=== PATIENT | female | born 2000 ===

== ENCOUNTER 2020-01-19 15:25 | Inpatient (IN) | payer OTHER ==
[~2020-01-19] VITALS: Ht 170.2 cm; Wt 93.2 kg
[2020-01-20] VITALS (34 sets, daily range): BP systolic 107–139; BP diastolic 59–84; PULSE 68–96; TEMP 97.7–99.5
--- NOTE | 2020-01-20 07:10 | NUR ---
Pt arrives on unit ambulatory with spouse for IOL. Changed into a clean gown. EFM and toco applied. Pt states ctx that began at 0400 with bloody show. Denies LOF and reports GFM. VSS. IV started in LF. Labs drawn. LR infusing. Admission assessment completed. Consents signed. Pt updated on POC. No questios or concerns at this time. Bed locked in low position. Call light within reach. 3149-Pt up to bathroom.
[2020-01-20] MEDS ORDERED: PROFERRIN ES12 MG PO (07:24)
[2020-01-20 08:32] LABS: BASO % 0.2 % (0.0-2.0); EOS # 0.1 (0.0-0.7); EOS % 0.9 % (0-4.0); GRAN # 8.7 (1.4-6.5); GRAN % 75.5 % (42.2-75.2); HEMATOCRIT 38.2 % (35.0-45.0); HEMOGLOBIN 12.2 g/dl (12.0-15.0); LYMPH # 1.7 (1.2-3.4); MEAN CELL VOLUME 89 fl (80.0-95.0); MEAN CORPUSCULAR HEMOGLOBIN 28 pg (26.0-32.0); MEAN CORPUSCULAR HGB CONC 32 g/dl (33.0-37.0); MEAN PLATELET VOLUME 11.7 fl (7.4-10.4); MONO # 0.9 (0.1-0.6); MONO % 7.9 % (1.7-9.3); PLATELET COUNT 237 K/mm3 (130-400); RED BLOOD COUNT 4.29 M/mm3 (4.10-5.30); REDCELL DISTRIBUTION WIDTH-CV 14.3 % (11.5-14.5)
--- NOTE | 2020-01-20 09:38 | NUR ---
Pt sitting at EOB for epidural placement. Difficulty tracing FHR due to maternal position. RN at bedside adjusting monitors. FHR audible.
--- NOTE | 2020-01-20 14:05 | NUR ---
SVE per this RN C/+2. Pt prepped for delivery and coached on pushing. Practice push performed. Moves vertex well. 1409-Dr. Araujo notified and requested to unit for delivery. 1413-Dr. Araujo at bedside. Begins pushing with pt. 1422- of viable male attended by Dr. Araujo. Cord clamped x 2 and cut from umibilicus. Infant dried and placed on mother's abdomden. Care of to Chucky Shipley RN. Apgars 8/9/9. 1430- of placenta. Fundus firm at umbilicus. Bleeding WNL. Pitocin bolus infusing per protocol. Periurethral laceration repair per provider. Pericare performed. Ice pack applied. Bed locked in low position. Call light within reach. No questions or concerns at this time.
[2020-01-21 00:30] VITALS: BP 129/66; PULSE 72; TEMP 98.5
[2020-01-21 04:30] VITALS: BP 117/58; PULSE 83; TEMP 98
[2020-01-21 08:30] VITALS: BP 118/64; PULSE 80; TEMP 98.5
--- NOTE | 2020-01-21 09:06 | NUR ---
Initial visit; Parents thanked [employer] for offering congratulations and God's blessings for the of their son. [employer] thanked family for choosing [facility].
[2020-01-21] MEDS ORDERED: IBU600 MG PO (10:14)
[2020-01-21 16:59] VITALS: BP 124/62; PULSE 83; TEMP 98.6
[2020-01-21 20:25] VITALS: BP 120/64; PULSE 78; TEMP 97.8
[2020-01-22 07:30] VITALS: BP 115/82; PULSE 88; TEMP 98.6
== END 2020-01-22 14:25 | disposition home or self-care (01) | DRG 807 ==
LOC: OB 15:25 → LDR 01-20 07:02 → OB 01-20 14:13
PROVIDERS: ADMIT Obstetrics & Gynecology
PROC: 10E0XZZ Delivery of Products of Conception, External Approach (ICD-10-PCS; principal; 2020-01-20)
PROC: 0UQMXZZ Repair Vulva, External Approach (ICD-10-PCS; 2020-01-20)
DX: O48.0 Post-term pregnancy (principal); Z37.0 Single live birth; O99.02 Anemia complicating childbirth; Z3A.40 40 weeks gestation of pregnancy
CPT/HCPCS: J2400; J2405; J2590; J7120